=== PATIENT | male | born 1990 | race Caucasian/White ===

== ENCOUNTER 2019-08-28 06:17 | Emergency (ER) | payer BC, OTHER ==
[2019-08-28] MEDS ORDERED: Sodium Chloride 0.9% 10 ML Syringe FLUSH PRN (07:01)
[2019-08-28] MEDS ORDERED: Sodium Chloride 0.9% 1,000 ML IV ONE ×2 (07:39→12:11)
--- NOTE | 2019-08-28 07:50 | EDM.PDOC ---
ED HPI GENERAL MEDICAL PROBLEM - General Chief Complaint: Abdominal Pain Time Seen by Provider: 08/28/19 07:05 Source of Information: Reports: Patient History Limitations: Reports: No Limitations - History of Present Illness INITIAL COMMENTS - FREE TEXT/NARRATIVE: 28-year-old male who presents to the emergency department complaining of lower chest and upper abdominal pain with increased drainage from cecostomy tube since yesterday evening. Yesterday morning he had his cecostomy tube (which he has had for the past 20 years and which he uses for irrigation of his bowel because of neurogenic bowel) replaced by interventional radiology at [facility]. He reports that that seemed to go well and with no apparent complications at this time and he ate lunch at around noon and while eating lunch he reports that a piece of chicken got stuck in his saphenous and he was unable to pass liquid or food for the next 4-5 hours. He also reports that during this time he had repeated harsh and forceful vomiting. Beginning at about 4:56 PM yesterday evening, he was able to pass liquids and he also ate and was able to swallow that okay. He did at that time begin to have some pain in his upper abdomen and lower chest that seemed to radiate around to the back and has since moved lower in his abdomen. He also at that time noted increased drainage from his cecostomy tube which usually only drained a very small amount. This was yellow drainage that smelled like stool. He does feel that he may have had a fever around midnight last night but none was measured. He has had no chills. He has had no difficulty breathing. The reading does seem to be worse when he takes a deep breath and with palpation. The worst pain is in his epigastrium and in his center upper abdomen area it is a dull and constant pain that he rates as a 6/10. It does not seem to be affected by eating or drinking. The patient also reports that he self caths because of neurogenic bladder and he has not had to self catheter for some time and he feels somewhat dehydrated. There are no other associated signs or symptoms. There are no other modifying factors. 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: Reports: Other (see below) (Nothing) Upper abdominal Pain Score (Numeric/FACES): 5 - Related Data Allergies Allergy/AdvReac Type Severity Reaction Status Date / Time latex Allergy Cardiac Verified 08/28/19 06:24 Arrest vancomycin Allergy Redness Verified 08/28/19 06:24 Home Meds: Home Meds Minocycline [Minocin] 100 mg PO BEDTIME 08/28/19 [History] Oxybutynin 10 mg PO BEDTIME 08/28/19 [History] Past Medical History Respiratory History: Reports: Asthma Gastrointestinal History: Reports: Other (See Below) (Neurogenic bowel) Genitourinary History: Reports: Neurogenic Bladder, Other (See Below) Other Genitourinary History: self caths Musculoskeletal History: Reports: Other (See Below) Other Musculoskeletal History: hx spina-bifida, scoliosis Neurological History: Reports: Other (See Below) (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 He lives in [place]) ED ROS GENERAL - Review of Systems Review Of Systems: See Below Constitutional: Reports: Fever (?), Malaise HEENT: Reports: Other (Dry mouth) Respiratory: Reports: No Symptoms Cardiovascular: Reports: Chest Pain GI/Abdominal: Reports: Abdominal Pain, Other (Other as per history of present illness) : Reports: No Symptoms, Other (Patient does self cath and he reports that his urine has appeared clear) Musculoskeletal: Reports: No Symptoms Skin: Reports: No Symptoms Neurological: Reports: No Symptoms Hematologic/Lymphatic: Reports: No Symptoms Immunologic: Reports: No Symptoms ED EXAM, GI/ABD - Physical Exam Exam: See Below Exam Limited By: Uncooperative General Appearance: Alert, WD/WN, Moderate Distress, Other (No respiratory distress. Normal mentation.) Eyes: Bilateral: Normal Appearance, EOMI Ears: Normal External Exam, Hearing Grossly Normal Nose: Normal Inspection, Normal Mucosa, No Blood Throat/Mouth: Normal Voice, No Airway Compromise, Other (Tacky mucous membranes) Head: Atraumatic, Normocephalic Neck: Normal Inspection, Supple, Non-Tender, Full Range of Motion Respiratory/Chest: No Respiratory Distress, Lungs Clear, Normal Breath Sounds, No Accessory Muscle Use, Chest Non-Tender Cardiovascular: Normal Peripheral Pulses, No JVD, No Murmur, Tachycardia GI/Abdominal Exam: Normal Bowel Sounds, Soft, Tender (In the epigastrium and upper quadrants primarily down to the level of the umbilicus.), Other (Tube ( cecostomy tube) in right lower quadrant with some yellow stool drainage around it. There is some mild tenderness in this area.). No: Rigid, Rebound Back Exam: No: Paraspinal Tenderness, Vertebral Tenderness Extremities: Non-Tender, No Pedal Edema, Normal Capillary Refill Neurological: Alert, Oriented, CN II-XII Intact, Normal Cognition, No Motor/ Sensory Deficits Skin Exam: Warm, Dry, Intact, Normal Color, No Rash EKG INTERPRETATION EKG Date: 08/28/19 Time: 08:11 Rhythm: Other (Sinus tachycardia) [place]: RAD-Right [place] Deviation P-Wave: Enlarged (Left atrial enlargement probable) QRS: Other (Right bundle-branch block and left posterior fascicular block) ST-T: Other (Nonspecific ST-T changes) QT: Normal Comparison: NA - No Prior EKG Course - Vital Signs Last Recorded V/S: Last Vital Signs Temp 36.8 C 08/28/19 11:00 Pulse 121 H 08/28/19 11:00 Resp 18 08/28/19 11:00 BP 129/86 08/28/19 11:00 Pulse Ox 100 08/28/19 11:00 - Orders/Labs/Meds Orders: Active Orders 24 hr Category Date Time Status EKG Documentation Completion [RC] ASDIRECTED Care 08/28/19 08:00 Active Chest Abdomen Pelvis w Cont [CT] Stat Exams 08/28/19 07:40 Taken CULTURE URINE [RM] Stat Lab 08/28/19 08:25 Received Sodium Chloride 0.9% [Normal Saline] 1,000 ml Med 08/28/19 10:15 Active IV ASDIRECTED Sodium Chloride 0.9% [Saline Flush] Med 08/28/19 07:01 Active 10 ml FLUSH ASDIRECTED PRN Saline Lock Insert [OM.PC] Routine Oth 08/28/19 07:01 Ordered EKG 12 Lead [EK] Routine Ther 08/28/19 08:00 Ordered Medication Orders Sodium Chloride (Normal Saline) 1,000 mls @ 150 mls/hr IV ASDIRECTED PAUL Last Admin: 08/28/19 10:15 Dose: 150 mls/hr Sodium Chloride (Saline Flush) 10 ml FLUSH ASDIRECTED PRN PRN Reason: Keep Vein Open Labs: Laboratory Tests 08/28/19 08/28/19 08/28/19 Range/Units 06:20 06:20 06:20 WBC 15.8 H (4.5-12.0) X10-3/uL RBC 6.20 H (4.30-5.75) x10(6)uL Hgb 17.4 (13.5-17.8) g/dL Hct 51.8 H (30.0-51.3) % MCV 83.7 (80-96) fL MCH 28.2 (27.7-33.6) pg MCHC 33.6 (32.2-35.4) g/dL RDW 12.5 (11.5-15.5) % Plt Count 228 (125-369) X10(3)uL Sodium 139 (135-145) mmol/L Potassium 3.8 (3.5-5.3) mmol/L Chloride 102 (100-110) mmol/L Carbon Dioxide 22 (21-32) mmol/L BUN 22 H (7-18) mg/dL Creatinine 0.8 (0.70-1.30) mg/dL Est Cr Clr Drug Dosing 97.22 mL/min Estimated GFR (MDRD) > 60 (>60) BUN/Creatinine Ratio 27.5 H (9-20) Glucose 137 H (80-116) mg/dL Calcium 9.8 (8.6-10.2) mg/dL Total Bilirubin 1.6 H (0.1-1.3) mg/dL Direct Bilirubin 0.28 H (0.10-0.20) mg/dL AST 20 (5-25) IU/L ALT 29 (12-36) U/L Alkaline Phosphatase 106 (56-112) IU/L C-Reactive Protein (0.5-0.9) mg/dL Total Protein 8.8 H (6.0-8.0) g/dL Albumin 5.0 (3.5-5.2) g/dL Lipase (73-393) U/L Urine Color (YELLOW) Urine Appearance (CLEAR) Urine pH (5.0-6.5) Ur Specific [place] (1.010-1.025) Urine Protein (NEGATIVE) mg/dL Urine Glucose (UA) (NORMAL) mg/dL Urine Ketones (NEGATIVE) mg/dL Urine Occult Blood (NEGATIVE) Urine Nitrite (NEGATIVE) Urine Bilirubin (NEGATIVE) Urine Urobilinogen (NEGATIVE) mg/dL Ur Leukocyte Esterase (NEGATIVE) Urine RBC (0-5) Urine WBC (0-5) Ur Squamous Epith Cells (NS,R,O) Urine Bacteria (NS) Urine Mucus (NS) 08/28/19 08/28/19 08/28/19 Range/Units 06:20 06:20 08:25 WBC (4.5-12.0) X10-3/uL RBC (4.30-5.75) x10(6)uL Hgb (13.5-17.8) g/dL Hct (30.0-51.3) % MCV (80-96) fL MCH (27.7-33.6) pg MCHC (32.2-35.4) g/dL RDW (11.5-15.5) % Plt Count (125-369) X10(3)uL Sodium (135-145) mmol/L Potassium (3.5-5.3) mmol/L Chloride (100-110) mmol/L Carbon Dioxide (21-32) mmol/L BUN (7-18) mg/dL Creatinine (0.70-1.30) mg/dL Est Cr Clr Drug Dosing mL/min Estimated GFR (MDRD) (>60) BUN/Creatinine Ratio (9-20) Glucose (80-116) mg/dL Calcium (8.6-10.2) mg/dL Total Bilirubin (0.1-1.3) mg/dL Direct Bilirubin (0.10-0.20) mg/dL AST (5-25) IU/L ALT (12-36) U/L Alkaline Phosphatase (56-112) IU/L C-Reactive Protein 1.3 H (0.5-0.9) mg/dL Total Protein (6.0-8.0) g/dL Albumin (3.5-5.2) g/dL Lipase 97 (73-393) U/L Urine Color Yellow (YELLOW) Urine Appearance Clear (CLEAR) Urine pH 5.0 (5.0-6.5) Ur Specific [place] 1.025 (1.010-1.025) Urine Protein Trace (NEGATIVE) mg/dL Urine Glucose (UA) Normal (NORMAL) mg/dL Urine Ketones 15 H (NEGATIVE) mg/dL Urine Occult Blood Negative (NEGATIVE) Urine Nitrite Negative (NEGATIVE) Urine Bilirubin Small H (NEGATIVE) Urine Urobilinogen Normal (NEGATIVE) mg/dL Ur Leukocyte Esterase Small H (NEGATIVE) Urine RBC 0-5 (0-5) Urine WBC 0-5 (0-5) Ur Squamous Epith Cells Few H (NS,R,O) Urine Bacteria Few H (NS) Urine Mucus Many H (NS) Meds: Medications Generic Name Dose Route Start Last Admin Trade Name Freq PRN Reason Stop Dose Admin Sodium Chloride 1,000 mls @ 150 mls/hr 08/28/19 10:15 08/28/19 10:15 Normal Saline IV 150 mls/hr ASDIRECTED PAUL Administration Sodium Chloride 10 ml 08/28/19 07:01 Saline Flush FLUSH ASDIRECTED PRN Keep Vein Open Discontinued Medications Generic Name Dose Route Start Last Admin Trade Name Freq PRN Reason Stop Dose Admin Sodium Chloride 1,000 mls @ 999 mls/hr 08/28/19 07:39 08/28/19 07:45 Normal Saline IV 08/28/19 08:39 999 mls/hr .BOLUS ONE Administration Iopamidol 80 ml 08/28/19 08:06 08/28/19 09:17 [id number] (76%) IV 08/28/19 08:07 80 ml . DIRECTED ONE Administration - Radiology Interpretation Free Text/Narrative:: CT scan of chest, abdomen and pelvis showed dilated stomach and proximal small bowel loops of unclear etiology. It also showed the cecostomy tube to be in apparent appropriate position with no leakage or intra-abdominal fluid or air. The chest CT was essentially negative. - Re-Assessments/Exams Free Text/Narrative Re-Assessment/Exam: 08/28/19 09:00: Patient has received normal saline 1 L as a bolus and is now down to 104. His pain is essentially unchanged. Is awake, alert and appropriate. No rigidity in his abdomen at this point. He is going to CT scan now for CTA of his chest, abdomen and pelvis. 08/28/19 10:20: CT scan of the patient's chest, abdomen and pelvis showed no acute abnormality in the chest, dilated loops of proximal small bowel and a dilated stomach with no clear transition point and what appeared to be normal placement of the cecostomy tube with no intraperitoneal fluid or air. The patient's pulse rate remains in the 100 range. He has had no vomiting. His abdominal pain is unchanged. His abdominal exam remains soft and nonrigid. He is still having repeated drainage of yellow liquid stool around his cecostomy tube. I feel that the patient will need admission for IV fluid hydration and continued close monitoring in relation to his abdominal pain and the drainage from around his cecostomy. I am unsure of the etiology of the dilated stomach and proximal small bowel. And I am also sure of the etiology of the drainage from around his cecostomy tube. I did feel that I need to discuss this case with the interventional radiologist and he would potentially need transfer for services not available here. I did discuss this with the patient and he has asked that I discuss with the doctors at [facility] in [place]. 08/28/19 10:30: I discussed the patient's case with Dr. Ruiz, ED physician at [facility], and he felt that I needed to discuss the patient's case with the interventional radiologist and if the interventional radiologist felt that the did not need any further intervention then present his case to the doctors here at [facility]. 08/28/19 10:45: I discussed the patient's case with Dr. Howell, interventional radiologist at [facility], and he did not feel that the patient needed any acute intervention at this point. He was also not really able to tell me why the patient was having drainage from around the cecostomy tube but his recommendations were to watch this and intervene if this persisted for more than 48-72 hours. I discussed this with the patient and I will discuss this case with Dr. Vela and Dr. Stafford 08/28/19 10:50: I discussed patient's case with Dr. Vela and he would see the patient in consult as requested but felt that I should discuss the patient's case with the hospitalist for admission. 08/28/19 11:15: I discussed the patient's case with Dr. Stafford, hospitalist, and he will admit the patient. The patient is in agreement with plans for admission. Departure - Departure Time of Disposition: 11:30 Disposition: Refer to Observation Condition: Good Clinical Impression: Abdominal pain of unknown etiology, Moderate dehydration, Cecostomy tube dysfunction - Discharge Information Referrals: Kobi Canada MD [Primary Care Provider] - Forms: ED Department Discharge Sepsis Event Note - Evaluation Sepsis Screening Result: No Definite Risk - Focused Exam Vital Signs: Vital Signs Temp Temp Pulse Pulse Resp BP BP 08/28/19 11:00 36.8 C 121 H 18 129/86 08/28/19 08:45 36.8 C 106 H 18 141/84 H 08/28/19 06:40 128 H 18 135/85 08/28/19 06:25 36.9 C 140 H 18 135/87 Pulse Ox 08/28/19 11:00 100 08/28/19 08:45 100 08/28/19 06:40 99 08/28/19 06:25 100 Date Exam was Performed: 08/28/19 Time Exam was Performed: 11:33 - My Orders Last 24 Hours: My Active Orders 08/28/19 07:40 Chest Abdomen Pelvis w Cont [CT] Stat 08/28/19 08:00 EKG Documentation Completion [RC] ASDIRECTED EKG 12 Lead [EK] Routine 08/28/19 08:25 CULTURE URINE [RM] Stat 08/28/19 10:15 Sodium Chloride 0.9% [Normal Saline] 1,000 ml IV ASDIRECTED - Assessment/Plan Last 24 Hours: My Active Orders 08/28/19 07:40 Chest Abdomen Pelvis w Cont [CT] Stat 08/28/19 08:00 EKG Documentation Completion [RC] ASDIRECTED EKG 12 Lead [EK] Routine 08/28/19 08:25 CULTURE URINE [RM] Stat 08/28/19 10:15 Sodium Chloride 0.9% [Normal Saline] 1,000 ml IV ASDIRECTED
[2019-08-28] MEDS ORDERED: Iopamidol 755 Mg/ML 100 ML Bottle IV ONE (08:06)
[2019-08-28] MEDS ORDERED: Sodium Chloride 0.9% 1,000 ML IV SCH (10:15)
--- NOTE | 2019-08-28 13:41 | CONS ---
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 Mr. Lee was in his usual state of health until yesterday. He had his cecostomy tube replaced through Interventional Radiology at [facility] without apparent immediate complications. This morning, he was eating a chicken lunch when it got stuck in his esophagus. It gave him esophageal pain for several hours. He was finally able to eat some applesauce and felt like it went down. Since that, however, he has had persistent epigastric pain and has not felt well. He came into the emergency room for this and was seen by Dr. Knox. Evaluation including CT of the abdomen showed no apparent free air or obvious signs of perforation. Mr. Lee has remained tachycardic and his epigastric pain has been unchanged since he has been here and admission to the hospital was recommended. I came and evaluated Mr. Lee in the emergency room where this exam was done. PAST MEDICAL HISTORY: 1. He has as mentioned had congenital spina bifida with subsequent neurogenic bladder and bowel. 2. He had a cecostomy tube placed approximately 20 years ago and has had routine changes without difficulty in the past. 3. He self caths approximately 5 times a day with a new catheter each time. 4. He has a LINE HELPER shunt in place for hydrocephalus. 5. He has had multiple surgeries including fusion of his thoracic spine, bilateral femoral osteotomies, bilateral tibial osteotomies for foot corrections. 6. He has had bladder surgeries and he has had custom AFOs made, he walks with canes and AFO braces. MEDICATIONS: 1. Oxybutynin 10 mg at bedtime. 2. Minocycline 100 mg at bedtime. He takes this for control of acne and UTI prophylaxis. ALLERGIES: Latex, precautionary vancomycin infusion caused a red man syndrome. SOCIAL HISTORY: Nonsmoker. Occasional alcohol. No other drugs. FAMILY HISTORY: The patient is and has a [id number] son. 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 REVIEW OF SYSTEMS: General: No seizure, syncope, or recent significant weight change. Skin: Negative for new rash. HEENT: No recent changes in hearing or vision. No sore throat. No cough or purulent sputum. Cardiac: No chest pain or palpitations. Abdomen: No abdominal problems similar to this. He has had very mild dysphagia with dry foods in the past but never to this degree. He has noted a leakage of stool around his cecostomy tube since it was changed yesterday, he has never had this before either. PHYSICAL EXAMINATION: GENERAL: He is alert, comfortable, and a good historian. VITAL SIGNS: Blood pressure 129/86; pulse initially 140 upon arrival in emergency room, now down to 120 after a liter of IV fluid; temperature 98.3; respirations normal; O2 saturation 100% on room air. SKIN: Shows no rash. He has multiple scars over thoracic spine, left abdominal scars, and over lower extremities from old surgeries. His AFO braces were not removed for foot exam and he described a small area of callus on his medial malleolus, right side, with no open areas. HEENT: Showed TMs to be clear. Pupils are equal and reactive. Oropharynx clear. NECK: Supple. Thyroid is normal. LUNGS: Clear with good air movement at bases. HEART: Tachycardic. No murmur or gallop. ABDOMEN: I could not appreciate bowel sounds. He has upper abdominal rigidity, and upon shaking his abdomen, he has pain referred to the epigastric area as well. There was yellow stool leakage around the cecostomy tube in the right pelvic area. No significant point tenderness in the lower abdomen. EXTREMITIES: Atrophic in the lower extremities, normal upper. LABORATORY DATA: White count 15,800, hemoglobin 17.4. Electrolytes normal. Creatinine 0.8. CRP 1.3. Urinalysis is normal. CT of abdomen is reviewed. I also find no evidence of free air. Anatomy in the small bowel area appears a bit distorted to me. The LINE HELPER shunt tube is in place as is the cecostomy tube. ASSESSMENT: 1. Epigastric abdominal pain with now signs of an acute abdomen and tachycardia. 2. Recent cecostomy tube replacement without apparent immediate complications. 3. Episode of dysphagia just prior to this epigastric pain. PLAN: I have had a consult with Dr. Knox in the ER and feel that this is in need of relatively urgent surgical evaluation. He is making arrangements for Mr. Lee to go up to [facility] for this. /[id number] [place]ONNE/BELÉN
== END 2019-08-28 14:25 ==
LOC: FB.ED 06:17
DX: E86.0 Dehydration (principal); K94.09 Other complications of colostomy; R10.13 Epigastric pain; E66.9 Obesity, unspecified; Z68.31 Body mass index [BMI] 31.0-31.9, adult; Z90.49 Acquired absence of other specified parts of digestive tract; Z91.040 Latex allergy status; Z88.1 Allergy status to other antibiotic agents
CPT/HCPCS: 36415; 71260; 74177; 80048; 80076; 81001; 83690; 85027; 86140; 87086; 93005; 96360; 96361; 99285-25; J7030; Q9967